=== PATIENT | male | born 1965 | race Two or more races ===

== ENCOUNTER 2021-11-12 16:01 | Emergency (ER) | payer SELFPAY ==
[~2021-11-12] VITALS: Ht 175.3 cm; Wt 76.7 kg
--- NOTE | 2021-11-12 16:19 | NUR ---
BIB S C/O SWOLLEN BILATERAL FEET/ANKLES x 1 WEEK. DENIES HX OF CARDIAC PROBLEMS. DENIES RECENTLY GETTING ON A FLIGHT. AAOX4, BREATHING EVEN AND UNLABORED, PEDAL PULSES 2+ BILATERALLY, BILATERAL FOOT/ANKLE EDEMA NOTED. WILL CONTINUE TO MONITOR.
--- NOTE | 2021-11-12 17:04 | NUR ---
NEEDS MET, VS STABLE
[2021-11-12 17:50] LABS: CALCIUM, SERUM 8.5 mg/dL (8.5-10.1); CARBON DIOXIDE 25 mmol/L (21-32); CHLORIDE 107 mmol/L (98-107); CREATININE 1.3 mg/dL (0.6-1.3); GLUCOSE 96 mg/dL (74-106); POTASSIUM 4.4 mmol/L (3.5-5.1); SODIUM SERUM 142 mmol/L (136-145); UREA NITROGEN, BLOOD 21 mg/dL (7-18)
[2021-11-12 18:07] LABS: BASOPHILS % (AUTO) 0.3 % (0.0-2.0); EOSINOPHILS % (AUTO) 2.6 % (0.0-6.0); HEMATOCRIT 45 % (39-51); HEMOGLOBIN 14.9 g/dL (13.5-17.5); LYMPHOCYTES % (AUTO) 13.3 % (20.0-44.0); MEAN CORPUSCULAR HGB CONC 33 g/dl (31.0-36.0); MEAN CORPUSCULAR VOLUME 97 fL (80-96); MONOCYTES # (AUTO) 0.4 K/uL (0.1-1.30); MONOCYTES % (AUTO) 5.8 % (2.0-12.0); NEUTROPHILS # (AUTO) 5.9 K/uL (1.8-8.9); PLATELET COUNT (AUTO) 185 K/uL (150-450); RED BLOOD CELL COUNT(AUTO) 4.62 MIL/uL (4.5-6.0); WHITE BLOOD COUNT (AUTO) 7.6 K/uL (4.3-11.0)
[2021-11-12 18:08] LABS: ALANINE AMINOTRANSFERASE 102 U/L (12-78); ALBUMIN 3.7 g/dL (3.4-5.0); ALKALINE PHOSPHATASE 80 U/L (46-116); ASPARTATE AMINOTRANSFERASE 36 U/L (15-37); BILIRUBIN,DIRECT 0.2 mg/dL (0.0-0.2); BILIRUBIN,TOTAL 1.3 mg/dL (0.2-1.0)
[2021-11-12 18:17] LABS: BILIRUBIN,URINE NEGATIVE (NEGATIVE); COLOR,URINE YELLOW (YELLOW); LEUKOCYTE ESTERASE ,URINE NEGATIVE (NEGATIVE); NITRITE, URINE NEGATIVE (NEGATIVE); PROTEIN,URINE NEGATIVE (NEGATIVE); UGLUCOSE NEGATIVE (NEGATIVE); UROBILINOGEN,URINE 0.2 EU/dL (0.2)
--- NOTE | 2021-11-12 19:00 | NUR ---
Patient discharged to home in stable condition. Written and verbal after care instructions given. Patient verbalizes understanding of instruction.
[2021-11-12 19:08] VITALS: BP 116/64
== END 2021-11-12 19:00 | disposition home or self-care (01) ==
LOC: ER 16:08
DX: R60.0 Localized edema (principal); J90 Pleural effusion, not elsewhere classified; R79.89 Other specified abnormal findings of blood chemistry
CPT/HCPCS: 36415; 71045-TC; 80048-TC; 80076-TC; 83735-TC; 83880; 84484-TC; 85025-TC

== ENCOUNTER 2023-12-07 14:45 | Inpatient (IN) | payer OTHER ==
[~2023-12-07] VITALS: Ht 172.7 cm; Wt 77.1 kg
[2023-12-07 15:47] LABS: BASOPHILS % (AUTO) 0.3 % (0.0-2.0); EOSINOPHILS # (AUTO) 1.7 K/uL (0.0-0.7); EOSINOPHILS % (AUTO) 24.9 % (0.0-6.0); HEMATOCRIT 43 % (39-51); HEMOGLOBIN 14.4 g/dL (13.5-17.5); LYMPHOCYTES # (AUTO) 1.2 K/uL (0.8-4.8); LYMPHOCYTES % (AUTO) 17.4 % (20.0-44.0); MEAN CORPUSCULAR HEMOGLOBIN 32 PG (26.0-33.0); MEAN CORPUSCULAR HGB CONC 34 g/dl (31.0-36.0); MEAN CORPUSCULAR VOLUME 96 fL (80-96); MONOCYTES # (AUTO) 0.4 K/uL (0.1-1.30); MONOCYTES % (AUTO) 5.6 % (2.0-12.0); NEUTROPHILS # (AUTO) 3.5 K/uL (1.8-8.9); NEUTROPHILS % (AUTO) 51.8 % (43.0-81.0); PLATELET COUNT (AUTO) 214 K/uL (150-450); RED BLOOD CELL COUNT(AUTO) 4.49 MIL/uL (4.5-6.0); RED CELL DISTRIBUTION WIDTH 14.6 % (11.5-15.0); WHITE BLOOD COUNT (AUTO) 6.8 K/uL (4.3-11.0)
[2023-12-07 15:50] LABS: APPEARANCE,URINE Clear (CLEAR); BILIRUBIN,URINE Negative (NEGATIVE); BLOOD, URINE Negative Ery/uL (NEGATIVE); COLOR,URINE YELLOW (YELLOW); KETONES,URINE Negative (NEGATIVE); LEUKOCYTE ESTERASE ,URINE Negative (NEGATIVE); NITRITE, URINE Negative (NEGATIVE); PH,URINE 5.5 (5.0-8.0); PROTEIN,URINE Negative (NEGATIVE); UGLUCOSE Negative (NEGATIVE); UROBILINOGEN,URINE 0.2 EU/dL (0.2)
[2023-12-07] MEDS ORDERED: ONDANSETRON HCL/PF 4 MG/2 ML VIAL ONE (15:56)
[2023-12-07] MEDS ORDERED: KETOROLAC TROMETHAMINE 15 MG/ML VIAL ONE (15:56)
[2023-12-07] MEDS ORDERED: PANTOPRAZOLE 40 MG VIAL ONE (15:56)
[2023-12-07 15:58] LABS: CALCIUM, SERUM 9.3 mg/dL (8.5-10.1); CREATININE 1.5 mg/dL (0.6-1.3); POTASSIUM 4.6 mmol/L (3.5-5.1)
[2023-12-07 16:03] LABS: ALBUMIN 3.6 g/dL (3.4-5.0); BILIRUBIN,DIRECT 0.2 mg/dL (0.0-0.2); BILIRUBIN,TOTAL 0.8 mg/dL (0.2-1.0); TOTAL PROTEIN, SERUM 6.8 g/dL (6.4-8.2)
[2023-12-07] MEDS: IV NS 0.9% 1,000 ML BAG IV ONE (16:08)
[2023-12-07] MEDS: ONDANSETRON HCL/PF 4 MG/2 ML VIAL IVP ONE (16:09)
[2023-12-07] MEDS: KETOROLAC TROMETHAMINE 15 MG/ML VIAL IV ONE (16:11)
[2023-12-07] MEDS: PANTOPRAZOLE 40 MG VIAL IV ONE (16:11)
[2023-12-07] MEDS ORDERED: MORPHINE SULFATE INJ 4 MG/ML DISP.SYRIN ONE (16:48)
[2023-12-07] MEDS: MORPHINE SULFATE INJ 2 MG/ML DISP.SYRIN IV ONE (16:52)
[2023-12-07 17:24] LABS: EOSINOPHILS % (MANUAL) 13 % (0-4); LYMPHOCYTES % (MANUAL) 23 % (16-48); MONOCYTES % (MANUAL) 8 % (0-11.0); NEUTROPHILS % (MANUAL) 56 (42-76)
[2023-12-07 17:25] LABS: ANISOCYTOSIS 1+; PLATELET ESTIMATE ADEQUATE
[2023-12-07] MEDS: IV NS 0.9% 1,000 ML IV PRN (18:56)
[2023-12-07] MEDS ORDERED: ONDANSETRON HCL/PF 4 MG/2 ML VIAL IVP PRN (19:00)
[2023-12-07 20:00] VITALS: BP 105/78; TEMP 98.4; O2SAT 96
[2023-12-07] MEDS: MORPHINE SULFATE INJ 2 MG/ML DISP.SYRIN IV PRN (22:09)
[2023-12-08 04:00] VITALS: BP 99/65; TEMP 98.3; O2SAT 98
[2023-12-08 07:29] LABS: BASOPHILS % (AUTO) 0.5 % (0.0-2.0); CREATININE 1.3 mg/dL (0.6-1.3); EOSINOPHILS # (AUTO) 1.7 K/uL (0.0-0.7); EOSINOPHILS % (AUTO) 24.3 % (0.0-6.0); HEMATOCRIT 38 % (39-51); HEMOGLOBIN 13.1 g/dL (13.5-17.5); LYMPHOCYTES # (AUTO) 1.3 K/uL (0.8-4.8); LYMPHOCYTES % (AUTO) 18.2 % (20.0-44.0); MAGNESIUM 2.3 mg/dL (1.8-2.4); MEAN CORPUSCULAR HEMOGLOBIN 33 PG (26.0-33.0); MEAN CORPUSCULAR HGB CONC 34 g/dl (31.0-36.0); MEAN CORPUSCULAR VOLUME 97 fL (80-96); MONOCYTES # (AUTO) 0.4 K/uL (0.1-1.30); MONOCYTES % (AUTO) 5.9 % (2.0-12.0); NEUTROPHILS # (AUTO) 3.6 K/uL (1.8-8.9); NEUTROPHILS % (AUTO) 51.1 % (43.0-81.0); PLATELET COUNT (AUTO) 172 K/uL (150-450); POTASSIUM 4.1 mmol/L (3.5-5.1); RED BLOOD CELL COUNT(AUTO) 3.94 MIL/uL (4.5-6.0); RED CELL DISTRIBUTION WIDTH 14.8 % (11.5-15.0)
[2023-12-08 10:36] LABS: LYMPHOCYTES % (MANUAL) 19 % (16-48); MONOCYTES % (MANUAL) 5 % (0-11.0); NEUTROPHILS % (MANUAL) 52 (42-76)
[2023-12-08 10:37] LABS: ANISOCYTOSIS 1+; BASOPHILS % (MANUAL) 0 % (0.0-2.0); EOSINOPHILS % (MANUAL) 24 % (0-4); PLATELET ESTIMATE DECREASED
[2023-12-08 12:00] VITALS: BP 118/72; TEMP 98.2; O2SAT 98
[2023-12-08 13:36] LABS: CREATININE, URINE 123.2 MG/DL (30.0-125.0); URINE TOTAL PROTEIN 13.7 mg/dL (0-11.9)
== END 2023-12-08 18:10 | disposition home or self-care (01) | DRG 439 ==
LOC: ER 14:53 → MEDSG1 19:34
DX: K85.90 Acute pancreatitis without necrosis or infection, unspecified (principal); N17.9 Acute kidney failure, unspecified; Z90.49 Acquired absence of other specified parts of digestive tract; F12.90 Cannabis use, unspecified, uncomplicated; D64.9 Anemia, unspecified; F10.91 Alcohol use, unspecified, in remission
CPT/HCPCS: 36415; 80048-TC; 80076-TC; 82570-TC; 83690-TC; 83735-TC; 84100-TC; 84300-TC; 85025-TC; A4223; G0378; J1885; J2270; J2405; J7030

== ENCOUNTER 2024-11-12 10:57 | Inpatient (IN) | payer OTHER ==
[~2024-11-12] VITALS: Ht 175.3 cm; Wt 73.5 kg
[2024-11-12] MEDS ORDERED: METOCLOPRAMIDE HCL 10 MG/2 ML VIAL ONE (11:38)
[2024-11-12] MEDS ORDERED: MECLIZINE HCL 25 MG TABLET ONE (11:38)
[2024-11-12] MEDS ORDERED: LORAZEPAM INJ 2 MG/ML VIAL ONE (11:39)
[2024-11-12] MEDS: IV NS 0.9% 1,000 ML BAG IV ONE (12:02)
[2024-11-12] MEDS: LORAZEPAM INJ 2 MG/ML VIAL IV ONE (12:05)
[2024-11-12 12:09] LABS: BASOPHILS % (AUTO) 0.3 % (0.0-2.0); EOSINOPHILS % (AUTO) 0.3 % (0.0-6.0); HEMATOCRIT 46 % (39-51); HEMOGLOBIN 16.1 g/dL (13.5-17.5); LYMPHOCYTES # (AUTO) 1.9 K/uL (0.8-4.8); LYMPHOCYTES % (AUTO) 22.6 % (20.0-44.0); MEAN CORPUSCULAR HEMOGLOBIN 33 PG (26.0-33.0); MEAN CORPUSCULAR HGB CONC 35 g/dl (31.0-36.0); MEAN CORPUSCULAR VOLUME 94 fL (80-96); MONOCYTES # (AUTO) 0.6 K/uL (0.1-1.30); MONOCYTES % (AUTO) 6.7 % (2.0-12.0); NEUTROPHILS # (AUTO) 5.9 K/uL (1.8-8.9); NEUTROPHILS % (AUTO) 70.1 % (43.0-81.0); PLATELET COUNT (AUTO) 236 K/uL (150-450); RED CELL DISTRIBUTION WIDTH 14.5 % (11.5-15.0); WHITE BLOOD COUNT (AUTO) 8.4 K/uL (4.3-11.0)
[2024-11-12] MEDS: METOCLOPRAMIDE HCL 10 MG/2 ML VIAL IV ONE (12:10)
[2024-11-12 12:32] LABS: CALCIUM, SERUM 10.1 mg/dL (8.5-10.1); CARBON DIOXIDE 19 mmol/L (21-32); CHLORIDE 104 mmol/L (98-107); CREATININE 1.3 mg/dL (0.6-1.3); GLUCOSE 155 mg/dL (74-106); POTASSIUM 3.3 mmol/L (3.5-5.1); SODIUM SERUM 139 mmol/L (136-145); UREA NITROGEN, BLOOD 20 mg/dL (7-18)
[2024-11-12] MEDS ORDERED: ATROPINE SULFATE 1 MG/10 ML DISP.SYRIN ONE (12:34)
[2024-11-12] MEDS: ATROPINE SULFATE 1 MG/10 ML DISP.SYRIN IV ONE (12:35)
[2024-11-12 12:46] LABS: MAGNESIUM 2.2 mg/dL (1.8-2.4)
[2024-11-12 12:47] LABS: THYROID STIMULATING HORMONE 1.18 uIU/mL (0.358-3.74)
[2024-11-12] MEDS: MECLIZINE HCL 12.5 MG TABLET PO ONE (13:30)
[2024-11-12] MEDS ORDERED: ONDANSETRON HCL/PF 4 MG/2 ML VIAL IVP PRN (14:30)
[2024-11-12] MEDS ORDERED: MAG HYDROX/AL HYDROX/SIMETH 30 ML UDC PO PRN (14:30)
[2024-11-12] MEDS ORDERED: ACETAMINOPHEN 325 MG TABLET PO PRN (14:30)
[2024-11-12 16:00] VITALS: BP 134/53; TEMP 97.8; O2SAT 100
[2024-11-12] MEDS: ENOXAPARIN SODIUM 40 MG/0.4 ML DISP.SYRIN SQ SCH (16:39)
[2024-11-12] MEDS: IV NS 0.9% 1,000 ML IV PRN (16:40)
[2024-11-12] MEDS: POTASSIUM CHLORIDE 20 MEQ TAB.PRT.SR PO ONE (18:29)
[2024-11-12 20:00] VITALS: BP 126/62; TEMP 97.7; O2SAT 98
[2024-11-13] VITALS: BP 129/79; TEMP 98.4; O2SAT 97
[2024-11-13 04:00] VITALS: BP 126/71; TEMP 98.1; O2SAT 98
[2024-11-13 06:37] LABS: BASOPHILS % (AUTO) 0.3 % (0.0-2.0); EOSINOPHILS # (AUTO) 0.3 K/uL (0.0-0.7); EOSINOPHILS % (AUTO) 4.5 % (0.0-6.0); HEMATOCRIT 42 % (39-51); HEMOGLOBIN 14.2 g/dL (13.5-17.5); LYMPHOCYTES # (AUTO) 1.4 K/uL (0.8-4.8); LYMPHOCYTES % (AUTO) 20.6 % (20.0-44.0); MEAN CORPUSCULAR HEMOGLOBIN 32 PG (26.0-33.0); MEAN CORPUSCULAR HGB CONC 34 g/dl (31.0-36.0); MEAN CORPUSCULAR VOLUME 95 fL (80-96); MONOCYTES # (AUTO) 0.5 K/uL (0.1-1.30); MONOCYTES % (AUTO) 7.7 % (2.0-12.0); NEUTROPHILS # (AUTO) 4.7 K/uL (1.8-8.9); NEUTROPHILS % (AUTO) 66.9 % (43.0-81.0); PLATELET COUNT (AUTO) 206 K/uL (150-450); RED BLOOD CELL COUNT(AUTO) 4.47 MIL/uL (4.5-6.0)
[2024-11-13 07:08] LABS: CALCIUM, SERUM 9.2 mg/dL (8.5-10.1); CREATININE 1.2 mg/dL (0.6-1.3); POTASSIUM 4.1 mmol/L (3.5-5.1)
[2024-11-13 08:00] VITALS: BP 130/80; TEMP 98.6; O2SAT 98
[2024-11-13] MEDS: MECLIZINE HCL 25 MG TABLET PO SCH (10:57)
[2024-11-13 12:00] VITALS: BP 108/75; TEMP 97.3; O2SAT 98
[2024-11-13 16:00] VITALS: BP 121/66; TEMP 98.2; O2SAT 98
[2024-11-13 20:00] VITALS: BP 120/68; TEMP 98.6; O2SAT 95
[2024-11-14] VITALS: BP 123/72; TEMP 98.2; O2SAT 97
[2024-11-14 04:00] VITALS: BP 117/64; TEMP 98.1; O2SAT 95
[2024-11-14] MEDS ORDERED: MECL-159 PO (07:48)
[2024-11-14 08:00] VITALS: BP 121/81; TEMP 97.7; O2SAT 97
== END 2024-11-14 11:17 | disposition home or self-care (01) | DRG 149 ==
LOC: ER 10:57 → TELE1 14:27
PROVIDERS: ADMIT Nurse Practitioner Acute Care; ATTEND Nurse Practitioner Acute Care
DX: H81.13 Benign paroxysmal vertigo, bilateral (principal); E86.0 Dehydration; R00.1 Bradycardia, unspecified; E03.9 Hypothyroidism, unspecified; E87.6 Hypokalemia; R53.1 Weakness; R11.0 Nausea
CPT/HCPCS: 36415; 70450-TC; 71045-TC; 80048-TC; 83735-TC; 83880; 84100-TC; 84439-TC; 84443-TC; 84484-TC; 85025-TC; 87081-TC; 93307-TC; 97110-TC; 97112-TC; 97116-TC; 97530-TC; 97535-TC; A4223; G0378; J0461; J1650; J2060; J2765; J7030; J8597

== ENCOUNTER 2025-03-11 16:30 | Emergency (ER) | payer OTHER ==
[~2025-03-11] VITALS: Ht 175.3 cm; Wt 72.7 kg
[~2025-03-11 16:30] MED LIST: MECL-159 PO
[2025-03-11 16:39] VITALS: BP 146/75; TEMP 99.1
[2025-03-11] MEDS ORDERED: AMOX-430 PO (17:05)
[2025-03-11] MEDS ORDERED: HYDR-4209 PO (17:05)
[2025-03-11] MEDS ORDERED: KETO10TA2 PO (17:05)
[2025-03-11] MEDS ORDERED: HYDROCODONE/APAP 5/325MG TABLET ONE (17:14)
[2025-03-11 17:16] VITALS: O2SAT 98
[2025-03-11] MEDS: HYDROCODONE/APAP 5/325MG TABLET PO ONE (17:19)
== END 2025-03-11 17:18 | disposition home or self-care (01) ==
LOC: ER 16:37
DX: K04.7 Periapical abscess without sinus (principal)